=== PATIENT | male | born 1995 | race Caucasian/White ===

== ENCOUNTER 2024-11-02 04:17 | Emergency (ER) | payer OTHER ==
[2024-11-02 04:25] VITALS: BP 152/90; PULSE 88; RESP 16; TEMP 98.8
[2024-11-02] MEDS: IBUPROFEN 600 MG TAB PO STA (04:48)
[2024-11-02] MEDS: AMOXIC-POT CLAV 875-125MG 1 EACH TAB PO STA (04:48)
--- NOTE | 2024-11-02 04:48 | ED ---
ENT HPI - General Chief complaint: Dental/Oral Stated complaint: tooth pain Time Seen by Provider: 11/02/24 04:34 Source: patient Mode of arrival: ambulatory Limitations: no limitations - History of Present Illness Initial comments: This patient is a 29-year-old man with history of moderately extensive dental caries and multiple previous tooth aches. He states that over the past few days he has been having increasing dental pain. He called and set up an appointment but states he will not be able to be seen for over a week now. He states that the pain is limiting his sleep. He has not had any difficulty with breathing, speech or swallowing. He indicates pain in the right mandibular molar. No swelling into the neck. He does state there is some swelling adjacent to the tooth that hurts. MD complaint: tooth pain -: days(s) Location: tooth # (31) Severity: severe Quality: aching Consistency: intermittent Improves with: none Worsens with: none Context-Epistaxis: history of similar Context- Dental: history of dental caries Associated Symptoms: gum swelling, toothache - Related Data Previous Rx's Medication Instructions Recorded Amoxic-Pot Clav 875-125Mg 1 tab PO Q12HR 1 Days #20 tab 11/02/24 [Augmentin 875-125] Ibuprofen 600 mg PO Q8H #30 tab 11/02/24 Allergies Allergy/AdvReac Type Severity Reaction Status Date / Time No Known Allergies Allergy Verified 11/02/24 04:25 Review of Systems ROS Statement: Those systems with pertinent positive or pertinent negative responses have been documented in the HPI. ROS Other: All systems not noted in ROS Statement are negative. Constitutional: Denies: fever, chills, weakness Eyes: Denies: eye pain ENT: Reports: dental pain. Denies: ear pain, throat pain, congestion Respiratory: Denies: cough, dyspnea Cardiovascular: Denies: chest pain Gastrointestinal: Denies: abdominal pain Neurological: Denies: headache Past Medical History Past Medical History: No Reported History History of Any Multi-Drug Resistant Organisms: None Reported Past Surgical History: No Surgical Hx Reported Past Psychological History: No Psychological Hx Reported Smoking Status: Never smoker Past Alcohol Use History: None Reported Past Drug Use History: Marijuana General Exam Limitations: no limitations General appearance: alert, in no apparent distress Head exam: Present: atraumatic, normocephalic Eye exam: Present: normal appearance, PERRL, EOMI. Absent: scleral icterus, conjunctival injection ENT exam: Present: normal oropharynx, mucous membranes moist, other (The patient does have extensive caries throughout. He has some gingival swelling adjacent to #30 and 31. No sublingual or submandibular swelling. No neck findings.) Neck exam: Present: normal inspection, full ROM. Absent: tenderness, meningismus, lymphadenopathy Neurological exam: Present: alert Skin exam: Present: warm, dry, intact, normal color. Absent: rash Course Vital Signs 11/02/24 04:22 Temperature 98.8 F Pulse Rate 88 Respiratory 16 Rate Blood Pressure 152/90 O2 Sat by Pulse 97 Oximetry Disposition Clinical Impression: Dental abscess Disposition: HOME SELF-CARE Condition: Good Instructions (If sedation given, give patient instructions): Dental Abscess (ED) Prescriptions: Amoxic-Pot Clav 875-125Mg [Augmentin 875-125] 1 tab PO Q12HR 1 Days #20 tab Ibuprofen 600 mg PO Q8H #30 tab Is patient prescribed a controlled substance at d/c from ED?: No Referrals: None,Stated [Primary Care Provider] - 1-2 days
== END 2024-11-02 04:59 | disposition home or self-care (01) ==
LOC: EC 04:17
DX: K04.7 Periapical abscess without sinus (principal)
CPT/HCPCS: 99283